=== PATIENT | female | born 1980 | race African-American/Black ===

== ENCOUNTER 2024-07-28 07:45 | Outpatient (CLI) | payer OTHER | END 2024-07-28 07:46 | disposition home or self-care (01) | LOC: ULT 07:45 | DX: N76.0 Acute vaginitis (principal); R10.84 Generalized abdominal pain; K80.20 Calculus of gallbladder without cholecystitis without obstruction | CPT/HCPCS: 76700 ==

== ENCOUNTER 2024-08-01 12:17 | Outpatient (CLI) | payer OTHER | END 2024-08-01 12:18 | disposition home or self-care (01) | LOC: ULT 12:17 | PROVIDERS: ATTEND Family Medicine | DX: N76.0 Acute vaginitis (principal); R10.84 Generalized abdominal pain | CPT/HCPCS: 76856 ==

== ENCOUNTER 2024-09-26 10:00 | Outpatient (CLI) | payer OTHER ==
[2024-09-26 16:46] LABS: #Basophils 0.07 10x3/uL (0.0-0.2); %Basophils 1.1 % (0.0-1.0); %Eosinophils 1.7 % (0.0-10.0); %Lymphocytes 43.1 % (21.0-51.0); %Monocytes 5.8 % (0.0-10.0); %Neutrophils 48.1 % (42.0-75.0); Hematocrit 34.1 % (36.0-47.0); Hemoglobin 11.8 g/dL (12.0-16.0); Mean Corpuscular HGB CONC 34.6 g/dL (32.0-36.0); Mean Corpuscular Hemoglobin 25.7 pg (27.0-31.0); Mean Corpuscular Volume 74.1 fL (78.0-98.0); Mean Platelet Volume 9.6 fL (7.4-10.4); Platelet Count 337 10x3/uL (130-400); RBC Distribution Width 13.9 % (11.5-14.5)
[2024-09-26 16:55] LABS: ALT (SGPT) 21 U/L (8-55); AST (SGOT) 15 U/L (5-34); Albumin 3.7 g/dL (3.5-5.0); Alkaline Phosphatase 91 U/L (40-110); Anion Gap 13 mmol/L (10-20); BUN (Urea Nitrogen) 18 mg/dL (7.0-18.7); Bilirubin, Direct 0.1 mg/dL (0.1-0.3); Bilirubin, Total 0.3 mg/dL (0.2-1.2); Calc. Creatinine Clearance 0 mL/min (70-130); Calcium 9.2 mg/dL (7.8-10.44); Carbon Dioxide 25 mmol/L (22-29); Chloride 105 mmol/L (98-107); Estimated GFR 72; Glucose 90 mg/dL (70-105); Potassium 4.1 mmol/L (3.5-5.1); Protein, Total 7.7 g/dL (6.0-8.3); Sodium 139 mmol/L (136-145)
[2024-09-26 17:07] LABS: Macrocytosis SLIGHT = 6-15 cells HPF (0-5); Microcytosis SLIGHT = 6-15 cells HPF (0-5); Platelet Adequacy Comment Platelets Normal; Polychromasia SLIGHT = 2-3 cells HPF (0-2)
== END 2024-09-26 12:00 | disposition home or self-care (01) ==
LOC: LABBT 10:00
PROVIDERS: ATTEND Surgery
DX: Z01.812 Encounter for preprocedural laboratory examination (principal); K80.20 Calculus of gallbladder without cholecystitis without obstruction
CPT/HCPCS: 80053; 80076; 85025

== ENCOUNTER 2024-09-29 07:12 | Day surgery (SDC) | payer OTHER ==
[2024-09-26 15:29] VITALS: BMI 35.2
[2024-09-29] MEDS ORDERED: Acetaminophen 500 MG TAB ONE (08:06)
[2024-09-29] MEDS ORDERED: LevoFLOXacin 500 mg/D5W 500 MG in Premix 1 BAG IVPB SCH (08:30)
[2024-09-29] MEDS ORDERED: Indocyanine Green 25 MG/10 ML VIAL ONE (08:44)
[2024-09-29] MEDS ORDERED: Bupivacaine 0.25% HCL 30 ML VIAL ONE (08:44)
[2024-09-29] MEDS ORDERED: EPINEPHrine 1 MG/ML VIAL ONE (08:44)
[2024-09-29] MEDS ORDERED: Midazolam HCl 2 mg/2 ml Vial ONE (08:54)
[2024-09-29] MEDS ORDERED: fentaNYL PF 100 MCG/2 ML SYRINGE ONE (08:54)
[2024-09-29] MEDS ORDERED: Rocuronium Bromide 10 MG/ML (10ML VIAL) ONE (08:54)
[2024-09-29] MEDS ORDERED: Lidocaine 1% PF 5 ML VIAL ONE (08:54)
[2024-09-29] MEDS ORDERED: PROPOFOL 20 ML ONE (08:54)
[2024-09-29] MEDS ORDERED: Ondansetron PF 4 MG/2 ML Vial ONE (09:57)
[2024-09-29] MEDS ORDERED: Esmolol 100 MG/10 ML VIAL ONE (09:57)
[2024-09-29] MEDS ORDERED: Ketorolac Tromethamine 30 MG (1 mL) VIAL ONE (09:57)
[2024-09-29] MEDS ORDERED: Dexamethasone 20 MG/5 ML VIAL ONE (09:57)
[2024-09-29] MEDS ORDERED: Meropenem 1 GM in Sodium Chloride 0.9% 100 ML IVPB SCH (10:15)
[2024-09-29] MEDS ORDERED: Dexmedetomidine 200 MCG/2 ML VIAL ONE (10:40)
[2024-09-29] MEDS ORDERED: SUGAMMADEX SODIUM 200 MG/2 ML VIAL ONE (10:41)
[2024-09-29] MEDS ORDERED: fentaNYL 50 mcg/mL 1 mL Vial ONE ×2 (11:17→11:47)
[2024-09-29] MEDS ORDERED: HYDROcodone/Acetaminophen 5/325 mg Tablet ONE (13:20)
== END 2024-09-29 14:14 | disposition home or self-care (01) ==
LOC: SDC 07:12
PROVIDERS: ATTEND Surgery
PROC: 0FT44ZZ Resection of Gallbladder, Percutaneous Endoscopic Approach (ICD-10-PCS; principal; 2024-09-29)
DX: K80.10 Calculus of gallbladder with chronic cholecystitis without obstruction (principal); F17.200 Nicotine dependence, unspecified, uncomplicated; Z88.0 Allergy status to penicillin; Z79.899 Other long term (current) drug therapy
CPT/HCPCS: 88304; C1889; J0171; J0665; J1100; J1885; J2185; J2250; J2405; J2704; J3010; S2900